=== PATIENT | male | born 1970 | race Caucasian/White ===

== ENCOUNTER → 2017-09-30 | Outpatient (CLI) | payer OTHER ==
--- NOTE | 2017-09-30 19:19 | MR ---
EXAMINATION TYPE: MR shoulder LT wo con DATE OF EXAM: 09/30/2017 COMPARISON: NONE HISTORY: Left shoulder pain on and off for one year per patient TECHNIQUE: Multiplanar, multisequence imaging of the left shoulder is performed without contrast. FINDINGS: Rotator Cuff: Distal supraspinatus and infraspinatus tendons are intact. No suspicious tears are seen . Rotator cuff muscle bulk is preserved. Subscapularis tendon is intact. Acromioclavicular Joint: There is capsular hypertrophy at acromioclavicular joint. There is type II d ownsloping acromion with loss inferior fat plane. Glenohumeral Joint: There is no significant effusion. No significant spurring is seen. Labrum: There is subchondral cystic change superior osseous glenoid paracoronal image 18 with undercu tting and increased signal adjacent labrum, tear is suspected. Biceps Tendon: The long head of biceps is in normal location within bicipital groove. Bone marrow signal: Increased signal centered at acromioclavicular joint is present. Other: No additional significant abnormality is appreciated. IMPRESSION: No rotator cuff tear. Suspect SLAP type tear. AC joint arthropathy noted. Possible inflam matory change. Downsloping acromion with suggestion of underlying impingement.
== END | disposition home or self-care (01) ==
LOC: RADMRIMAIN 18:13
PROVIDERS: ATTEND Family Medicine
DX: M19.012 Primary osteoarthritis, left shoulder (principal)

== ENCOUNTER → 2017-10-09 | Outpatient (CLI) | payer OTHER ==
--- NOTE | 2017-10-09 15:13 | XR ---
EXAMINATION TYPE: XR hand complete bilateral DATE OF EXAM: 10/09/2017 COMPARISON: NONE HISTORY: Pain TECHNIQUE: Three views are submitted. FINDINGS: The osseous structures are intact. The joint spaces are preserved and there is no acute fracture or dislocation. Tiny ossified density along the base of the proximal phalanx third digit appears chroni c. Chronic deformity involving the tuft distal phalanx fifth digit. IMPRESSION: 1. No definite acute fracture or dislocation if symptoms persist, follow-up study in 7 to 10 days wo uld be suggested
== END | disposition home or self-care (01) ==
LOC: RADXRMAIN 13:24
PROVIDERS: ATTEND Nurse Practitioner Family
DX: M79.643 Pain in unspecified hand (principal)

== ENCOUNTER → 2018-05-17 | Outpatient (CLI) | payer OTHER ==
[2018-05-17 16:56] LABS: Albumin 4.9 g/dL (3.80-4.90); Albumin/Globulin Ratio 2.58 (1.20-2.10); Anion Gap 7.8 mmol/L (4.00-12.00); Calcium 9.8 mg/dL (8.7-10.3); Carbon Dioxide 26.2 mmol/L (21.6-31.8); Globulin 1.9 g/dL (2.1-3.7); Total Bilirubin 0.5 mg/dL (0.3-1.2); Total Protein 6.8 g/dL (6.2-8.2)
== END | disposition home or self-care (01) ==
LOC: LABWHC1 08:48
PROVIDERS: ATTEND Nurse Practitioner Family
DX: E78.2 Mixed hyperlipidemia (principal)
CPT/HCPCS: 36415; 80053; 80061

== ENCOUNTER → 2023-04-29 | Outpatient (CLI) | payer BC ==
--- NOTE | 2023-04-29 08:06 | CTL ---
EXAMINATION TYPE: CT Low Dose Lung DATE OF EXAM ORDERED: 04/29/2023 HISTORY: Long-term tobacco use. Lung cancer screening CT DLP: 82.[address] CTDI: 2.4 mGy Automated exposure control for dose reduction was used. SCREENING VISIT: Baseline COMPARISON: None TECHNIQUE: Low dose computed tomography scan was performed through the chest at 1 mm thick sections a nd reconstructed images in multiple planes at 1 mm and [address] DIAGNOSTIC QUALITY: Satisfactory FINDINGS: LUNG NODULES: Present, detailed below: There is a 4 mm peripheral calcified nodule or benign granuloma right lung axial image 145. No greater than 5 mm noncalcified pulmonary nodules LUNGS: COPD: Severity: None Fibrosis: Severity: None Lymph nodes: None Other findings: None RIGHT PLEURAL SPACE: Effusion: None Calcification: None Thickening: None Pneumothorax: None LEFT PLEURAL SPACE: Effusion: None Calcification: None Thickening: None Pneumothorax: None HEART: Heart Size: Normal Coronary Calcification: Moderate to severe three-vessel Pericardial Effusion: None OTHER FINDINGS: Upper abdomen: Visualized liver is diffusely low dense consistent with fatty infiltrative hepatocellu lar disease. Bony thorax: None Supraclavicular region: None Other: None IMPRESSION: No later than 5 mm noncalcified pulmonary nodules. CT LUNG RAD AND CT CHEST RECOMMENDATION: Lung-Rad 2 Benign Appearance or Behavior: Continue annual sc reening with LDCT in 12 months. S Modifier (other clinically significant findings): S Moderate to severe three-vessel coronary artery calcification should be correlated with additional ca rdiac risk factors. Fatty infiltrative hepatocellular disease is also noted.
== END | disposition home or self-care (01) ==
LOC: RADCTMAIN 06:17
PROVIDERS: ATTEND Family Medicine
DX: Z12.2 Encounter for screening for malignant neoplasm of respiratory organs (principal); Z87.891 Personal history of nicotine dependence
CPT/HCPCS: 71271

== ENCOUNTER → 2023-07-08 | Outpatient (CLI) | payer BC ==
--- NOTE | 2023-07-08 13:07 | CA ---
Stress Echo Report Armin Cagle Age: 53 Gender: M : 1970 Exam Date: 07/08/2023 10:20 Exam Location: [facility] Ht (in): 68 Wt (lb): 240 Ordering Physician: Kaylen Mchugh MD Referring Physician: Radha Serrano Tabulating Machine Mechanic: CHARITO, Technologist Procedure CPT: Indication: E78.5 HYPERLIPIDEMIA R93.1 ABNORMAL FINDING ICD-9 Codes: Rhythm: Patient History: Hyperlipidemia Cardiac Medications: Medications in past 24 hours: Contrast: Stress Results Protocol: Narayan Total dose(mL): Exercise Duration (min:sec): Max ST Depression (mm): Angina Score: Phillips Score: METS: 12.3 Resting HR: 63 Resting BP: 138 / 80 Peak HR: 169 Peak BP: 182 / 90 Max Predicted HR: 169 100 % Max Predicted HR Target HR: 144 Double Product: 80800 Stress Summary: The patient's target heart rate was achieved BP Response: Reason for Termination: Reached target heart rate or work-load Cardiac Symptoms: No symptoms ECG Analysis Resting ECG: Normal sinus rhythm Stress ECG: Greater than 1 mm of horizontal or downsloping ST depression - inferio-lateral leads Arrhythmia: None Echo Analysis Resting Echo: Normal resting echocardiogram. Peak Echo Analysis: Moderately size hypokinesis in the inferior and inferoseptal wall MEASUREMENTS (Male/Female) Normal Values CONCLUSIONS 1. Excellent exercise tolerance 2. Moderately positive electrocardiographic response to exercise 3. Moderate size of ischemia involving the inferior and inferoseptal wall. Dr. Mira Raygoza MD (Electronically Signed) Final Date: 08 July 2023 13:06
[2023-07-08 15:49] LABS: Blood Urea Nitrogen 16.5 mg/dL (9.0-27.0); Chloride 103 mmol/L (96-109); Chol/HDL Ratio 8.25 Ratio; Glucose 116 mg/dL (70-110); Potassium 4.8 mmol/L (3.5-5.5); Sodium 141 mmol/L (135-145)
[2023-07-08 15:50] LABS: ALT 80 U/L (10-49); AST 29 U/L (14-35); Albumin 4.8 g/dL (3.8-4.9); Albumin/Globulin Ratio 2.09 Ratio (1.60-3.17); Alkaline Phosphatase 63 U/L (41-126); Globulin 2.3 g/dL (1.6-3.3); Total Bilirubin 0.3 mg/dL (0.3-1.2); Total Protein 7.1 g/dL (6.2-8.2)
[2023-07-08 15:53] LABS: PSA Annual Screen 0.653 ng/mL (0.000-4.000)
[2023-07-08 15:56] LABS: Basophils # (A) 0.04 X 10*3/uL (0.00-0.10); Basophils % (A) 0.5 %; Eosinophils # (A) 0.09 X 10*3/uL (0.04-0.35); Eosinophils % (A) 1.2 %; HCT 43.2 % (39.6-50.0); Lymphocytes # (A) 1.88 X 10*3/uL (0.90-5.00); Lymphocytes % (A) 25.3 %; MCH 30.4 pg (27.0-32.0); MCHC 32.4 g/dL (32.0-37.0); MCV 93.7 FL (80.0-97.0); Mean Platelet Volume 12.6 FL (9.5-12.2); Monocytes # (A) 0.51 X 10*3/uL (0.20-1.00); Monocytes % (A) 6.9 %; NRBC Per 100 WBC 0 X 10*3/uL (0.00-0.01); Neutrophils # (A) 4.87 X 10*3/uL (1.80-7.70); Neutrophils % (A) 65.4 %; Platelet Count 259 X 10*3/uL (140-440); RBC 4.61 X 10*6/uL (4.40-5.60); RDW 13.1 % (11.5-14.5); WBC 7.44 X 10*3/uL (4.50-10.00)
== END | disposition home or self-care (01) ==
LOC: RADNMMAIN 09:44
PROVIDERS: ATTEND Family Medicine
DX: Z12.5 Encounter for screening for malignant neoplasm of prostate (principal); Z13.21 Encounter for screening for nutritional disorder; Z13.228 Encounter for screening for other metabolic disorders; Z13.29 Encounter for screening for other suspected endocrine disorder; I24.89 Other forms of acute ischemic heart disease; R93.1 Abnormal findings on diagnostic imaging of heart and coronary circulation; E78.5 Hyperlipidemia, unspecified
CPT/HCPCS: 93351; 80053; 80061; 84443; 85025; 83721; 83036; G0103

== ENCOUNTER → 2023-08-14 | Outpatient (CLI) | payer BC ==
[2023-08-14 16:54] LABS: HCT 41.9 % (39.6-50.0); HGB 14.1 g/dL (13.0-17.0); MCH 30.7 pg (27.0-32.0); MCHC 33.7 g/dL (32.0-37.0); MCV 91.3 FL (80.0-97.0); Mean Platelet Volume 12.4 FL (9.5-12.2); NRBC Per 100 WBC 0 X 10*3/uL (0.00-0.01); Platelet Count 260 X 10*3/uL (140-440); RBC 4.59 X 10*6/uL (4.40-5.60); RDW 12.9 % (11.5-14.5); WBC 6.38 X 10*3/uL (4.50-10.00)
[2023-08-14 17:11] LABS: Blood Urea Nitrogen 17.2 mg/dL (9.0-27.0); Carbon Dioxide 25.6 mmol/L (21.6-31.8); Chloride 104 mmol/L (96-109); Potassium 4.6 mmol/L (3.5-5.5); Sodium 139 mmol/L (135-145)
== END | disposition home or self-care (01) ==
LOC: LABPAT 09:18
PROVIDERS: ATTEND Student in an Organized Health Care Education/Training Program
DX: Z01.812 Encounter for preprocedural laboratory examination (principal); R06.02 Shortness of breath
CPT/HCPCS: 36415; 80051; 82565; 84520; 85027

== ENCOUNTER 2023-08-29 08:48 | Day surgery (SDC) | payer BC ==
[~2023-08-29 08:48] MED LIST: ALPRAZolam 0.25 MG TAB PO PRN; ALPRAZolam 0.5 MG TAB PO PRN; ASPIRIN 325 MG TAB PO STA; HEPARIN SODIUM,PORCINE (1 ML) 2,500 UNIT in SODIUM CHLORIDE 0.9% 250 ML IRRIGATION PRN; HEPARIN SODIUM,PORCINE 10,000 UNIT in SODIUM CHLORIDE 0.9% 1,000 ML IRRIGATION PRN; NITROGLYCERIN SL TABS 0.4 MG TAB SUBLINGUAL PRN; SODIUM CHLORIDE 0.9% 1,000 ML in EMPTY BAG 1 BAG IV SCH
[2023-08-29] MEDS: SODIUM CHLORIDE 0.9% 1,000 ML IV ONE (10:05)
[2023-08-29] MEDS ORDERED: HEPARIN SODIUM 1,000 UN/ML (10ML VL) ONE (10:10)
[2023-08-29] MEDS ORDERED: fentaNYL (PF) 50 MCG/ML 2 ML AMP ONE (10:10)
[2023-08-29] MEDS: fentaNYL (PF) 50 MCG/ML 2 ML AMP IVP ONE (10:25)
[2023-08-29] MEDS: MIDAZOLAM 2 MG/2 ML VIAL IVP ONE (10:25)
[2023-08-29] MEDS: LIDOCAINE 1% INJ 10MG/ML (20 ML MDV) SQ ONE (10:26)
[2023-08-29] MEDS: VERAPAMIL SYRINGE (5 MG/10 ML) INTRAARTER ONE (10:31)
[2023-08-29] MEDS: HEPARIN SODIUM 1,000 UN/ML (10ML VL) IVP ONE (10:36)
[2023-08-29] MEDS: IOPAMIDOL-370 100ML BTL INTRATHECA ONE (11:08)
[2023-08-29] MEDS ORDERED: RX INFO: IV CONTRAST WAS GIVEN 1 EACH MISC MISCELLANE PRN (11:35)
[2023-08-29] MEDS ORDERED: SODIUM CHLORIDE 0.9% 1,000 ML IV SCH (11:45)
--- NOTE | 2023-08-29 11:45 | P.CARDCATH ---
Date of Procedure: 08/29/23 Description of Procedure: DIAGNOSTIC CORONARY ANGIOGRAPHY and LEFT HEART CATH REPORT PROCEDURES PERFORMED: Left heart catheterization Selective coronary angiography Moderate conscious sedation [25] mins [Ultrasound assisted] Right radial access INDICATION: 53-year-old with past medical history of obesity, sedentary lifestyle, 1 pack/day saw his PCP. They performed his lipid panels and it showed significant dyslipidemia with LDL 180s. Due to this his PCP ordered a treadmill echo stress test. Can walk on treadmill for 12 METS but by the end of treadmill protocol he was significantly short of breath. His stress echocardiogram showed inferior inferolateral wall hypokinesia. On further history in clinic he reported that he has been sedentary for last 1 to 2 years with not much physical activity. He had a low-dose chest CT which showed a small lung nodule and also showed coronary calcification. Due to his risk factors of smoking, dyslipidemia, obesity, positive stress test and exertional shortness of breath he was scheduled for a cardiac catheterization procedure. CONSENT: I have explained the procedural steps of above-mentioned procedures in layman's terms to the patient. I discussed the risks (including but not limited to stroke, emergent vascular or cardiac surgery or ), benefits and alternative therapies for the above-mentioned procedure. I discussed the risks of sedation/analgesia and blood product administration (if indicated). The patient has indicated understanding and acceptance of these risks. Conscious Sedation: Patient's ECG, heart rate, blood pressure, pulse oximetry were monitored throughout the duration of procedure under my direct supervision. [2] mg Versed and [50] mg Fentanyl were used for induction of moderate conscious sedation. Total duration of moderate concious sedation [25] minutes. PROCEDURE: After explaining the risks, benefits and alternatives of the above mentioned procedures in detail to the patient, informed consent was obtained. Patient was taken to the catheterization lab, prepped and draped in usual sterile fashion using universal precuations. Barbow and bashir test were performed to confirm adequate perfusion to fingers. Ultrasound was used to identify the radial artery. 1% lidocaine was infiltrated over the right radial artery. A 6-Russian sheath was placed and secured in the right radial artery using modified Seldinger technique. The sheath was flushed and 5 mg verapamil was administered intra-arterially. J tipped wire was advanced under fluoroscopic guidance. Once the wire tip reached aortic root [5000] units of IV heparin was given. Over the wire JR4 diagnostic catheter was advanced. The wire in place the catheter was manipulated to cross the aortic valve and entered into LV under fluoroscopy guidance. The wire was removed and the catheter was flushed. LV pressures were obtained and pullback was performed under fluoroscopy. Catheter was manipulated to selectively engage the right coronary ostium. Right coronary angiography was performed in different angiographic projections. The JR4 diagnostic catheter was exchanged for a JL 3.5 diagnostic catheter over the J-wire. The wire was removed, catheter was flushed and manipulated under fluoroscopy to selectively engaged the left coronary ostium. Left coronary angioplasty was performed in different angiographic projections. Catheter was removed over the wire. Radial sheath was flushed. The right radial sheath was removed and a TR band was placed with excellent patent hemostasis was achieved. The patient tolerated the procedure well. Patient was transported back to the post catheterization holding area in stable condition. Angiographic images were reviewed in detail. HEMODYNAMICS: Aortic Pressure: 120/70 mmHg. LV pressure: 121/6 mmHg. LVEDP 15 mmHg. There was no significant gradient across the aortic valve. SELECTIVE CORONARY ARTERIOGRAPHY: LEFT MAIN: The left main is a large caliber vessel which bifurcates into the LAD and circumflex. Distal left main appears to have 20% calcific disease. LEFT ANTERIOR DESCENDING CORONARY ARTERY: LAD is a large caliber vessel which wraps around to the apex. Ostial LAD appears to have 20% calcific disease. Proximal LAD has mild luminal irregularities. Mid LAD appears to have 20 to 30% diffuse smooth calcific disease. Distal LAD appears angiographically normal. LAD gives rise to 3 diagonal branches which are about 2 mm in caliber and appears angiographically normal LEFT CIRCUMFLEX CORONARY ARTERY: It is nondominant vessel. LCx is large caliber. Ostial LCx appears to have 20% disease. Proximal LCx appears to have 20 to 30% calcific disease. Mid LCx has mild luminal irregularities. It bifurcates into OM1 and OM 2. OM1 is medium caliber has mild luminal irregularity. Proximal OM 2 has 30 to 40% diffuse smooth calcific disease. RIGHT CORONARY ARTERY: Dominant vessel. Proximal to mid RCA has 95% sequential diffuse calcific disease. After giving RV marginal branch, RCA is 100% occluded in midsegment. There are left to right epicardial collaterals from LCx and LAD retrogradely filling PDA and RCA. IMPRESSION: LICENSING WORKER mid RCA, with [id number] collaterals Mild disease in distal left main Mild LAD and LCx disease PLAN: Continue aspirin 81 mg, Crestor 20 mg. Start Zetia 10 mg daily, add Imdur 50 mg daily, amlodipine 2.5 mg daily Case discussed with Dr. Davis. Will evaluate patient symptoms and see if he would benefit from a staged PCI of LICENSING WORKER RCA 150 cc fluids for 3 hours Discharge home in 3 hours Follow-up in the office in 1-2 weeks. Performing Physician Xavier Moody MD, FAC, RPVI Thank you for allowing [facility] to participate in this patient's care. Feel free to reach out in case of any followup questions. Please CC this report to Dr. Kaylen Mchugh MD
[2023-08-29 11:49] VITALS: RESP 16; TEMP 98
[2023-08-29 14:15] VITALS: BP 119/69; PULSE 56
== END 2023-08-29 15:15 | disposition home or self-care (01) ==
LOC: CATHCVL 08:48
PROVIDERS: ATTEND Student in an Organized Health Care Education/Training Program
DX: I25.10 Atherosclerotic heart disease of native coronary artery without angina pectoris (principal); F17.210 Nicotine dependence, cigarettes, uncomplicated; G47.33 Obstructive sleep apnea (adult) (pediatric); E78.5 Hyperlipidemia, unspecified; E66.9 Obesity, unspecified; Z68.39 Body mass index [BMI] 39.0-39.9, adult; Z79.82 Long term (current) use of aspirin; Z79.899 Other long term (current) drug therapy
CPT/HCPCS: 93458; 76937; C1894; C1769; J2250; J2001; J3010; J1644; Q9967

== ENCOUNTER → 2023-09-05 | Outpatient (CLI) | payer BC ==
[2023-09-06 00:45] LABS: LDL Cholesterol,Calculated 80.9 mg/dL (0.0-131.0); NT-Pro-B-Type Natriuretic Pept <36 pg/mL (0-125); VLDL Calculation 16.64 mg/dL (5.00-40.00)
== END | disposition home or self-care (01) ==
LOC: LABWHC1 15:19
PROVIDERS: ATTEND Student in an Organized Health Care Education/Training Program
DX: E78.5 Hyperlipidemia, unspecified (principal)
CPT/HCPCS: 36415; 80061; 83880; 86141

== ENCOUNTER 2023-09-26 09:46 | Day surgery (SDC) | payer BC ==
[~2023-09-26 09:46] MED LIST changes: -ASPIRIN 325 MG TAB PO STA; -SODIUM CHLORIDE 0.9% 1,000 ML in EMPTY BAG 1 BAG IV SCH
[2023-09-26] MEDS: SODIUM CHLORIDE 0.9% 1,000 ML IV ONE (10:19)
[2023-09-26 10:50] LABS: Basophils % (A) 0 %; Eosinophils # (A) 0.2 k/uL (0-0.7); Eosinophils % (A) 2 %; HCT 44.4 % (39.0-53.0); HGB 14.8 gm/dL (13.0-17.5); Lymphocytes % (A) 29 %; MCH 30.4 pg (25.0-35.0); MCHC 33.4 g/dL (31.0-37.0); Mean Platelet Volume 9.6; Monocytes # (A) 0.4 k/uL (0-1.0); Monocytes % (A) 5 %; Neutrophils # (A) 4.3 k/uL (1.3-7.7); Neutrophils % (A) 61 %; Platelet Count 260 k/uL (150-450); RBC 4.88 m/uL (4.30-5.90); RDW 12.9 % (11.5-15.5)
[2023-09-26 10:59] VITALS: RESP 16
[2023-09-26 11:04] LABS: African American GFR (CKD) >90 (>60 ml/min/1.73 sqM); Anion Gap 10 mmol/L; Blood Urea Nitrogen 19 mg/dL (9-20); Calcium 9.6 mg/dL (8.4-10.2); Carbon Dioxide 23 mmol/L (22-30); Chloride 104 mmol/L (98-107); Glucose 99 mg/dL (74-99); Non-African American GFR(CKD) >90 (>60 ml/min/1.73 sqM); Potassium 4.6 mmol/L (3.5-5.1); Sodium 137 mmol/L (137-145)
[2023-09-26] MEDS ORDERED: HEPARIN SODIUM 1,000 UN/ML (10ML VL) ONE (11:33)
[2023-09-26] MEDS ORDERED: fentaNYL (PF) 50 MCG/ML 2 ML AMP ONE (11:33)
[2023-09-26] MEDS: fentaNYL (PF) 50 MCG/ML 2 ML AMP IVP ONE (11:43)
[2023-09-26] MEDS: LIDOCAINE 1% INJ 10MG/ML (20 ML MDV) SQ ONE (11:49)
[2023-09-26] MEDS: VERAPAMIL SYRINGE (5 MG/10 ML) INTRAARTER ONE (11:52)
[2023-09-26] MEDS ORDERED: CLOPIDOGREL 75 MG TAB ONE (12:00)
[2023-09-26] MEDS: HEPARIN SODIUM 1,000 UN/ML (10ML VL) IVP ONE (12:02)
[2023-09-26] MEDS: CLOPIDOGREL 75 MG TAB PO ONE (12:02)
[2023-09-26] MEDS: IOPAMIDOL-370 100ML BTL INJ ONE ×3 (12:45→13:50)
[2023-09-26] MEDS: ACETAMINOPHEN TAB 500 MG TAB PO ONE (14:10)
[2023-09-26] MEDS ORDERED: RX INFO: IV CONTRAST WAS GIVEN 1 EACH MISC MISCELLANE PRN ×2 (15:03→15:04)
[2023-09-26] MEDS: SODIUM CHLORIDE 0.9% 500 ML 500 ML IV ONE (15:45)
[2023-09-26] MEDS: SODIUM CHLORIDE 0.9% 1,000 ML in EMPTY BAG 1 BAG IV SCH (18:37)
[2023-09-26] MEDS: SODIUM CHLORIDE 0.9% 1,000 ML IV SCH ×2 (18:38→18:39)
[2023-09-26] MEDS: ATORVASTATIN 80 MG TAB PO ONE (18:38)
[2023-09-26] MEDS: ASPIRIN 325 MG TAB PO ONE (18:38)
[2023-09-26] MEDS: ATORVASTATIN 40 MG TAB PO SCH (19:48)
[2023-09-26] MEDS: EZETIMIBE 10 MG TAB PO SCH (19:48)
[2023-09-26] MEDS: FENOFIBRATE 54 MG TAB PO SCH (19:48)
[2023-09-26 20:04] VITALS: BP 110/65; PULSE 88; TEMP 97.7
[2023-09-27] MEDS ORDERED: ASPIRIN 81 MG PO SCH (09:00)
[2023-09-27] MEDS ORDERED: amLODIPine 2.5 MG TAB PO SCH (09:00)
--- NOTE | 2023-10-02 14:09 | P.CARDCATH ---
Date of Procedure: 09/26/23 Description of Procedure: PROCEDURES PERFORMED: Bilateral coronary angiography, ultrasound guided arterial access, Attempted CD MIXER HELPER PCI of RCA INDICATION: CD MIXER HELPER, NYHA class III angina CONSENT:I have discussed the risks, benefits and alternative therapies for the above-mentioned procedure and for both sedation/analgesia as well as necessary blood product administration, if indicated, as they pertain to this patient. The patient has indicated understanding and acceptance of the risks and procedures discussed. PROCEDURE: After the risks, benefits and alternatives of the above mentioned procedure explained in detail with the patient, informed consent was obtained. Patient was taken to the catheterization lab and prepped and draped in usual fashion. Ultrasound guidance was used to assess for arterial access. 1% lidocaine was used to anesthetize the right radial artery. A 6-Yemeni sheath was placed in the right radial artery using modified Seldinger technique and ultrasound guidance. An additional 8-Yemeni sheath was placed in the right femoral artery. The decision was made to perform attempted PCI of the RCA. Dual injection was performed with a FL 3.5 catheter and a 7-Yemeni AL 0.75 guide. With total injections there is seen a small approximately 1 cm long CD MIXER HELPER with an additional marginal branch coming off at that area. The proximal to mid RCA had diffuse disease however this was able to be wired with a 0.014 BMW wire. Using a 6- Yemeni guide liner and a coarse hair microcatheter, the microcatheter was advanced to the proximal cap. Attempts were made at traversing the lesion with a 0.014 whisper wire and then a field or XT. This was unsuccessful with wire going into the marginal branch. Next the 0.014 sdv pilot/navigator/dds operator 200 wire was used to a goal into the cap. The proximal cap was extremely calcified. Attempted a Martha 2 and then a Martha 3 wire which were unsuccessful. We upgraded to a 8-Yemeni AL 1.0 guide to improve backup support and again used a 6-Yemeni guide liner and a coarse hair microcatheter. Attempted the Martha 3 and a Confianza Pro 12 which we were able to engage the cap however encountered large amount of calcium and unable to pass a wire. The collaterals were mainly epicardial and did not fill retrograde approach was a good approach. Attempted to create a dissection plane and J to wire however unable to pass the J past the lesion. At this point after nearly 2 hours of failed attempts, the procedure was aborted. The right radial sheath was removed and a TR band was placed with hemostasis achieved. An 8-Yemeni Angio-Seal was placed in the right femoral artery. The patient tolerated the procedure well. Patient was transported back to the post catheterization holding area in stable condition. Conscious Sedation: Patient was monitored under the direct supervision of myself for conscious sedation using Versed and fentanyl for a total duration of 117 minutes HEMODYNAMICS: Aorta: 130/72 SELECTIVE CORONARY ARTERIOGRAPHY: LEFT MAIN: The left main is a large caliber vessel which bifurcates into the LAD and circumflex. There is distal left main 30% stenosis. LEFT ANTERIOR DESCENDING CORONARY ARTERY: LAD is a large caliber vessel which wraps around to the apex. There is mid LAD 30% stenosis. LEFT CIRCUMFLEX CORONARY ARTERY: Left circumflex is a moderate caliber vessel with 30% proximal and mid circumflex stenosis. RIGHT CORONARY ARTERY: The right coronary artery is a moderate to large caliber vessel which gives off a PDA and PLV branch and is the dominant vessel. There is 100% mid RCA stenosis FINAL IMPRESSION: 1. CAD as described above with 100% RCA stenosis with left to right collaterals, 30% distal left main, 30% mid LAD, 30% circumflex stenosis. 2. Failed CD MIXER HELPER PCI RCA with calcified proximal CAP and inablitity to advanced wire PLAN: 1. Aggressive risk factor modification per most recent ACC/AHA guidelines. 2. Consider medical therapy for CD MIXER HELPER with robust collaterals and short segment CD MIXER HELPER however extremely calcified cap and inability to advance wire despite multiple attempts
== END 2023-09-26 21:10 | disposition home or self-care (01) ==
LOC: CATHCVL 09:46 → 6NMEDSUR 14:57 → CATHCVL 21:10
PROVIDERS: ATTEND Internal Medicine
DX: I25.10 Atherosclerotic heart disease of native coronary artery without angina pectoris (principal); I10 Essential (primary) hypertension; E78.5 Hyperlipidemia, unspecified; Z79.899 Other long term (current) drug therapy
CPT/HCPCS: 93454; 92920; 80048; 85025; C1769 ×7; C1760; C1887 ×2; C1894 ×3; C1751; J2001; J3010; J1644; Q9967

== ENCOUNTER → 2024-05-19 | Outpatient (CLI) | payer BC ==
--- NOTE | 2024-05-19 17:39 | CTL ---
EXAMINATION TYPE: CT Low Dose Lung DATE OF EXAM: 05/19/2024 5:11 PM COMPARISON: Previous CT Low Dose Lung cancer screening study 04/29/2023. CLINICAL INDICATION: Male, 54 years old with history of Z12.2 LUNG CA SCR Z87.891 FORMER SMOKER; Form er smoker, quit in 2013. Hx of [id number]., history of tobacco use. TECHNIQUE: Multiple axial non-contrast scans were obtained from approximately the lung apices through the upper abdomen. Coronal and sagittal reformatted images were obtained. Low dose technique was uti lized. MIP were created on a separate workstation and submitted for review. CT DLP: 94.3 mGycm, Automated exposure control for dose reduction was used. CT Contrast: FINDINGS: Lack of intravenous contrast and low dose technique limits the evaluation of the vascular and soft ti ssue structures. Heart size within normal limits. No pericardial effusion. Darian metastatic disease of the thoracic a cecille without aneurysmal dilatation. Coronary artery calcifications. No pathologic mediastinal or axil [place] lymphadenopathy. Imaging through the lungs demonstrates no acute focal consolidation. No pleural effusion or pneumotho rax. Scattered stable calcified and noncalcified pulmonary micronodules. For example, 3 mm ground gla ss nodule in the right upper lobe (series 5 image 13). No new suspicious or enlarging pulmonary nodul e identified. IMPRESSION: No new suspicious or enlarging pulmonary nodule. CT LUNG RAD AND CT CHEST RECOMMENDATION: Lung-Rad 2 Benign Appearance or Behavior: Continue annual sc reening with LDCT in 12 months. S Modifier (other clinically significant findings): None Recommend smoking cessation (if current smoker), or continuation of smoking cessation (if prior smoke r). Annual screening for lung cancer with low-dose computed tomography is recommended in adults ages 55 to 77 years who have a 30 pack-year smoking history and currently smoke or have quit within the pa st 15 years. Screening should be discontinued once a person has not smoked for 15 years or develops a health problem that substantially limits life expectancy or the ability or willingness to have curat orquidea lung surgery. Lung rads 2021 [email or web address] [facility], Workstation: [id number], 05/19/2024 5:36 PM
== END | disposition home or self-care (01) ==
LOC: RADCTMAIN 16:44
PROVIDERS: ATTEND Family Medicine
DX: Z12.2 Encounter for screening for malignant neoplasm of respiratory organs (principal); Z87.891 Personal history of nicotine dependence
CPT/HCPCS: 71271

== ENCOUNTER 2024-12-15 08:34 | Day surgery (SDC) | payer BC ==
[2024-12-14 09:48] VITALS: BMI 36.3
[~2024-12-15 08:34] MED LIST changes: -ALPRAZolam 0.25 MG TAB PO PRN; -ALPRAZolam 0.5 MG TAB PO PRN; -HEPARIN SODIUM,PORCINE (1 ML) 2,500 UNIT in SODIUM CHLORIDE 0.9% 250 ML IRRIGATION PRN; -HEPARIN SODIUM,PORCINE 10,000 UNIT in SODIUM CHLORIDE 0.9% 1,000 ML IRRIGATION PRN; +LACTATED RINGERS 1,000 ML IV SCH; +LIDOCAINE 1% (10MG/ML) FOR IV START INTRADERMA PRN; -NITROGLYCERIN SL TABS 0.4 MG TAB SUBLINGUAL PRN; +ONDANSETRON 4 MG/2 ML VIAL IVP PRN
[2024-12-15 09:00] VITALS: PULSE 58; TEMP 97.8
[2024-12-15] MEDS: IV FLUID CONTINUATION 1,000 ML IV ONE (09:03)
[2024-12-15] MEDS: LACTATED RINGERS 1,000 ML IV SCH (09:04)
[2024-12-15] MEDS ORDERED: PROPOFOL 10 MG/ML 20 ML VIAL IV ONE (09:20)
--- NOTE | 2024-12-15 09:24 | P.GSHP ---
History of Present Illness H&P Date: 12/15/24 Chief Complaint: Colon cancer screening 54-year-old male here for colonoscopy. Last colonoscopy 11 years ago. Patient had a small adenoma at the time. No family history of colon cancer. No bowel complaints. Past Medical History Past Medical History: Asthma, Coronary Artery Disease (CAD), Hyperlipidemia, Hypertension, Osteoarthritis (OA), Sleep Apnea/CPAP/BIPAP Additional Past Medical History / Comment(s): Occasional rectal bleeding, has not used inhalers for years, CPAP use. History of Any Multi-Drug Resistant Organisms: None Reported Past Surgical History: Heart Catheterization Additional Past Surgical History / Comment(s): Colonoscopy with polypectomy(benign), wisdom teeth extraction. Past Anesthesia/Blood Transfusion Reactions: No Reported Reaction Smoking Status: Former smoker - Past Family History Mother History Unknown: Yes Father Family Medical History: Cancer Additional Family Medical History / Comment(s): Multiple myeloma. Medications and Allergies Home Medications Medication Instructions Recorded Confirmed Type Rosuvastatin [Crestor] 20 mg PO QAM 08/26/23 12/14/24 History Aspirin EC [Ecotrin Low Dose] 81 mg PO DAILY 90 Days #90 tab 08/29/23 12/14/24 Rx Fenofibrate 50 mg PO QAM 09/25/23 12/15/24 History Ezetimibe [Zetia] 10 mg PO QAM 09/26/23 12/14/24 History amLODIPine [Norvasc] 2.5 mg PO QAM 09/26/23 12/15/24 History Allergies Allergy/AdvReac Type Severity Reaction Status Date / Time No Known Allergies Allergy Verified 12/15/24 08:51 Surgical - Exam Vital Signs Temp Pulse Resp BP Pulse Ox 97.8 F 58 L 16 120/77 97 12/15/24 08:59 12/15/24 08:59 12/15/24 08:59 12/15/24 08:59 12/15/24 08:59 Physical exam: General: Well-developed, well-nourished HEENT: Normocephalic, sclerae nonicteric Abdomen: Nontender, nondistended Extremities: No edema Neuro: Alert and oriented Assessment and Plan (1) Colon cancer screening Narrative/Plan: Will proceed with colonoscopy at this time. Current Visit: Yes Status: Acute Code(s): Z12.11 - ENCOUNTER FOR SCREENING FOR MALIGNANT NEOPLASM OF COLON SNOMED Code(s): 319800636
--- NOTE | 2024-12-15 09:32 | P.PCN ---
Date of Procedure: 12/15/24 Procedure(s) Performed: PREOPERATIVE DIAGNOSIS: Colon cancer screening POSTOPERATIVE DIAGNOSIS: Left-sided diverticulosis PROCEDURE: Colonoscopy ANESTHESIA: MAC SURGEON: Thien Mchugh M.D. SPECIMENS: None ENDOSCOPIC PROCEDURE: The patient was placed on the endoscopy table in the left decubitus position. The Olympus colonoscope was inserted into the anus and passed under direct visualization to the base of the cecum. The appendiceal orifice was visualized. From that point the scope was slowly withdrawn inspecting all surfaces carefully. There were no neoplastic inflammatory or polypoid lesions throughout the cecum, ascending, transverse, descending, sigmoid and rectum. There was left-sided diverticulosis noted. Digital rectal examination was normal. The patient was taken to the recovery room in stable condition per anesthesia guidelines. RECOMMENDATIONS: Resume diet. Repeat colonoscopy 10 years.
[2024-12-15 09:59] VITALS: BP 106/64; RESP 16
== END 2024-12-15 10:13 | disposition home or self-care (01) ==
LOC: ORWHC2ENDO 08:34
PROVIDERS: ATTEND Surgery
DX: Z12.11 Encounter for screening for malignant neoplasm of colon (principal); K57.30 Diverticulosis of large intestine without perforation or abscess without bleeding; Z86.0100 Personal history of colon polyps, unspecified; I10 Essential (primary) hypertension; E78.5 Hyperlipidemia, unspecified; I25.10 Atherosclerotic heart disease of native coronary artery without angina pectoris; J45.909 Unspecified asthma, uncomplicated; M19.90 Unspecified osteoarthritis, unspecified site; G47.30 Sleep apnea, unspecified; Z79.899 Other long term (current) drug therapy; Z79.82 Long term (current) use of aspirin; Z87.891 Personal history of nicotine dependence
CPT/HCPCS: 45378; J2704